=== PATIENT | male | born 2000 | race Caucasian/White ===

== ENCOUNTER 2021-04-21 23:24 | Emergency (ER) | payer OTHER, BC ==
[~2021-04-21] VITALS: Ht 180.3 cm; Wt 95.2 kg
--- NOTE | 2021-04-21 23:38 | ED Cardiac General ---
History of Present Illness General Stated Complaint: FAST HEARTRATE Source: patient History of Present Illness Date Seen by Provider: Apr 21, 2021 Time Seen by Provider: 23:32 Initial Comments 20-year-old male presents via EMS with complaint of racing heart rate. Patient was sitting on the couch playing video games when he began to have some numbness in his left arm and some tightness in his right chest and then his heart rate was racing and he called 911. Denies any drug or alcohol use, but after extensive questioning admits to "I have been drinking a lot of caffeine today". Patient admits to consuming both Mountain Dew and Dr. Henriquez today and in the hour prior to onset of his symptoms he had just finished off a [address]Danielle Henriquez. Denies any significant past medical history, on no medications. Denies any history of heart problems or heart palpitations Allergies and Home Medications Allergies Coded Allergies: No Known Drug Allergies (Unverified , 04/21/21) Patient Home Medication List Home Medication List Reviewed: Yes Review of Systems Review of Systems Constitutional: No chills, No fever; malaise EENTM: No Symptoms Reported Respiratory: Denies Cough, Denies Shortness of Air Cardiovascular: See HPI, Chest Pain, Irregular Heart Rate, Palpitations Gastrointestinal: Denies Constipated, Denies Diarrhea, Denies Nausea, Denies Poor Appetite, Denies Vomiting Musculoskeletal: No back pain, No joint pain, No neck pain Skin: No change in color, No lesions, No rash Psychiatric/Neurological: Denies Headache; Numbness (hands and extremities); Denies Paresthesia, Denies Tingling, Denies Tremors, Denies Weakness Past Edbazsm-Igfyzo-Dijygp Hx Patient Social History Tobacco Use?: No Substance use?: No Alcohol Use?: No Physical Exam Vital Signs Vital Signs - First Documented 04/21/21 23:25 Temp 36.9 Pulse 107 Resp 13 B/P (MAP) 168/94 (118) Pulse Ox 98 O2 Delivery Room Air Capillary Refill : Height, Weight, BMI Height: '" Weight: lbs. oz. kg; BMI Method: General Appearance: No Apparent Distress, WD/WN, Anxious HEENT: PERRL/EOMI, Normal ENT Inspection Neck: Full Range of Motion, Non Tender Respiratory: Chest Non Tender, Lungs Clear, Normal Breath Sounds, No Accessory Muscle Use, No Respiratory Distress Cardiovascular: No Edema, No Gallop, No JVD, Tachycardia (110's) Gastrointestinal: Non Tender, Soft Extremity: Normal Capillary Refill, Non Tender, No Calf Tenderness Neurologic/Psychiatric: Alert, Oriented x3, No Motor/Sensory Deficits, Normal Mood/Affect Skin: Normal Color, Warm/Dry Progress/Results/Core Measures Results/Orders Lab Results Laboratory Tests Test 04/21/21 23:42 04/22/21 00:30 Range/Units White Blood Count 7.1 4.3-11.0 10^3/uL Red Blood Count 4.69 4.30-5.52 10^6/uL Hemoglobin 14.2 13.3-17.7 g/dL Hematocrit 41 40-54 % Mean Corpuscular Volume 87 80-99 fL Mean Corpuscular Hemoglobin 30 25-34 pg Mean Corpuscular Hemoglobin Concent 35 32-36 g/dL Red Cell Distribution Width 11.8 10.0-14.5 % Platelet Count 308 130-400 10^3/uL Mean Platelet Volume 9.5 9.0-12.2 fL Immature Granulocyte % (Auto) 0 % Neutrophils (%) (Auto) 45 42-75 % Lymphocytes (%) (Auto) 35 12-44 % Monocytes (%) (Auto) 11 0-12 % Eosinophils (%) (Auto) 9 0-10 % Basophils (%) (Auto) 1 0-10 % Neutrophils # (Auto) 3.1 1.8-7.8 X 10^3 Lymphocytes # (Auto) 2.5 1.0-4.0 X 10^3 Monocytes # (Auto) 0.8 0.0-1.0 X 10^3 Eosinophils # (Auto) 0.6 H 0.0-0.3 10^3/uL Basophils # (Auto) 0.1 0.0-0.1 10^3/uL Immature Granulocyte # (Auto) 0.0 0.0-0.1 10^3/uL Sodium Level 139 135-145 MMOL/L Potassium Level 3.6 3.6-5.0 MMOL/L Chloride Level 101 98-107 MMOL/L Carbon Dioxide Level 26 21-32 MMOL/L Anion Gap 12 5-14 MMOL/L Blood Urea Nitrogen 16 7-18 MG/DL Creatinine 0.99 0.60-1.30 MG/DL Estimat Glomerular Filtration Rate 95 BUN/Creatinine Ratio 16 Glucose Level 122 H 70-105 MG/DL Calcium Level 9.3 8.5-10.1 MG/DL Corrected Calcium 8.9 8.5-10.1 MG/DL Total Bilirubin 0.2 0.1-1.0 MG/DL Aspartate Amino Transf (AST/SGOT) 22 5-34 U/L Alanine Aminotransferase (ALT/SGPT) 41 0-55 U/L Alkaline Phosphatase 65 40-136 U/L Total Protein 6.9 6.4-8.2 GM/DL Albumin 4.5 3.2-4.5 GM/DL Urine Color YELLOW Urine Clarity CLEAR Urine pH 6.0 5-9 Urine Specific [place] >=1.030 1.016-1.022 Urine Protein NEGATIVE NEGATIVE Urine Glucose (UA) NEGATIVE NEGATIVE Urine Ketones TRACE H NEGATIVE Urine Nitrite NEGATIVE NEGATIVE Urine Bilirubin NEGATIVE NEGATIVE Urine Urobilinogen 0.2 < = 1.0 MG/DL Urine Leukocyte Esterase NEGATIVE NEGATIVE Urine RBC (Auto) NEGATIVE NEGATIVE Urine RBC NONE /HPF Urine WBC NONE /HPF Urine Squamous Epithelial Cells RARE /HPF Urine Crystals NONE /LPF Urine Bacteria NEGATIVE /HPF Urine Casts NONE /LPF Urine Mucus MODERATE H /LPF Urine Culture Indicated NO My Orders Orders - ROVENSTINE,HARLEEN L DO Ed Iv/Invasive Line Start (04/21/21 23:32) Urinalysis (04/21/21 23:32) Cbc With Automated Diff (04/21/21 23:32) Comprehensive Metabolic Panel (04/21/21 23:32) Ekg Tracing (04/21/21 23:32) Ns Iv 1000 Ml (Sodium Chloride 0.9%) (04/21/21 23:45) Ns Iv 1000 Ml (Sodium Chloride 0.9%) (04/21/21 23:49) Vital Signs/I&O 04/21/21 23:25 Temp 36.9 Pulse 107 Resp 13 B/P (MAP) 168/94 (118) Pulse Ox 98 O2 Delivery Room Air Progress Progress Note : Progress Note Patient HR dropped to 80's p 1 liter NS and allowing time to calm down. Asymptomatic and feeling well without complaint. Discussed avoidance of excessive caffeine Initial ECG Impression Date: Apr 21, 2021 Initial ECG Impression Time: 23:44 Initial ECG Rate: 105 Initial ECG Rhythm: S.Tach Initial ECG Intervals: Normal Initial ECG Impression: Nonspecific Changes (inferior T wave changes and early repol abnl.) Initial ECG Comparisson: No Previous ECG Available Departure Impression Primary Impression: Sinus tachycardia Additional Impression: Excessive caffeine intake Disposition: HOME, SELF-CARE Condition: Improved Departure-Patient Inst. Patient Instructions: Sinus Tachycardia (DC) Add. Discharge Instructions: follow up with your Primary Care Doctor if your symptoms continue. Now that you have experienced the effects of excessive caffeine....Be more judicious in your consumption of caffeinated beverages. HARLEEN REYES DO Apr 21, 2021 23:38
[2021-04-21] MEDS ORDERED: NS IV 1000 ML 1,000 ML IV SCH (23:45)
[2021-04-21] MEDS ORDERED: NS IV 1000 ML 1,000 ML ONE (23:49)
[2021-04-22 00:15] LABS: HEMATOCRIT 41 % (40-54); HEMOGLOBIN 14.2 g/dL (13.3-17.7); MEAN CORPUSCULAR HEMOGLOBIN 30 pg (25-34); MEAN CORPUSCULAR HGB CONC 35 g/dL (32-36); WHITE BLOOD COUNT 7.1 10^3/uL (4.3-11.0)
[2021-04-22 00:16] LABS: BASOPHILS # (AUTO) 0.1 10^3/uL (0.0-0.1); BASOPHILS % (AUTO) 1 % (0-10); EOSINOPHILS # (AUTO) 0.6 10^3/uL (0.0-0.3); EOSINOPHILS % (AUTO) 9 % (0-10); LYMPHOCYTES # (AUTO) 2.5 X 10^3 (1.0-4.0); LYMPHOCYTES % (AUTO) 35 % (12-44); MEAN CORPUSCULAR VOLUME 87 fL (80-99); MEAN PLATELET VOLUME 9.5 fL (9.0-12.2); MONOCYTES # (AUTO) 0.8 X 10^3 (0.0-1.0); MONOCYTES % (AUTO) 11 % (0-12); NEUTROPHILS # (AUTO) 3.1 X 10^3 (1.8-7.8); NEUTROPHILS % (AUTO) 45 % (42-75); PLATELET COUNT 308 10^3/uL (130-400)
[2021-04-22 00:30] LABS: POTASSIUM 3.6 MMOL/L (3.6-5.0)
[2021-04-22 00:31] LABS: ALBUMIN 4.5 GM/DL (3.2-4.5); BILIRUBIN,TOTAL 0.2 MG/DL (0.1-1.0); CALCIUM 9.3 MG/DL (8.5-10.1); CREATININE SERUM 0.99 MG/DL (0.60-1.30); TOTAL PROTEIN 6.9 GM/DL (6.4-8.2)
[2021-04-22 00:40] LABS: BILIRUBIN,URINE NEGATIVE (NEGATIVE); CLARITY,URINE CLEAR; COLOR,URINE YELLOW; GLUCOSE, URINE (UA) NEGATIVE (NEGATIVE); KETONES,URINE TRACE (NEGATIVE); LEUKOCYTE ESTERASE ,URINE NEGATIVE (NEGATIVE); NITRITE,URINE NEGATIVE (NEGATIVE); PROTEIN,URINE NEGATIVE (NEGATIVE)
[2021-04-22 00:47] LABS: BACTERIA,URINE NEGATIVE /HPF; SQUAMOUS EPITHELIAL CELL,UR RARE /HPF
[2021-04-22 00:52] VITALS: BP 152/88
== END 2021-04-22 00:52 | disposition home or self-care (01) ==
LOC: ER FS 23:25
DX: R00.0 Tachycardia, unspecified (principal); T43.615A Adverse effect of caffeine, initial encounter
CPT/HCPCS: 36415; 80053; 81000; 85025; 93005